=== PATIENT | female | born 1975 | race Hispanic/Latino ===

== ENCOUNTER 2017-02-18 14:20 | Inpatient (IN) | payer OTHER ==
[2017-02-18] VITALS (14 sets, daily range): BP systolic 108–133; BP diastolic 57–72
[~2017-02-18] VITALS: Ht 144.8 cm; Wt 61.7 kg
--- NOTE | 2017-02-18 14:00 | NUR ---
Received patient from er to room 253. Patient states that she noted contractions at 17:30 pm this evening and then noted watery discharge with blood. Patient stated that 3 hours ago she noted to have a thick mucous discharge also. heart rate of 135. Moderate variability, good accels. no decels noted. Fauzia Leach community health coordinator for interpretation at present time.
--- NOTE | 2017-02-18 14:00 | NUR ---
Nickie Hamm RN for sheeter operator.
[2017-02-18] MEDS ORDERED: PRENATAL1 TA1 (14:26)
--- NOTE | 2017-02-18 14:32 | NUR ---
heart rate of 135. Moderate variability. good accels. No decels. Contractions every 5 minutes lasting 30 to 60 seconds in duration.
[2017-02-18 14:36] LABS: BARBITURATES NEGATIVE (NEGATIVE); COCAINE NEGATIVE (NEGATIVE); METHADONE NEGATIVE (NEGATIVE); OXCYCODONE NEGATIVE (NEGATIVE); TETRAHYDROCANNABIONOL NEGATIVE (NEGATIVE); TRICYLIC ANTIDEPRESSANTS NEGATIVE (NEGATIVE)
[2017-02-18 14:38] LABS: URINE BILIRUBIN - DIPSTICK NEGATIVE (NEGATIVE); URINE BLOOD DIPSTICK NEGATIVE (NEGATIVE); URINE CLARITY CLEAR; URINE COLOR YELLOW; URINE GLUCOSE - DIPSTICK NEGATIVE (NEGATIVE); URINE KETONE 15 mg/dL (NEGATIVE); URINE LEUK ESTERASE NEGATIVE (NEGATIVE); URINE NITRITE - DIPSTICK NEGATIVE (Negative); URINE PH 6.5 (4.5-8.0); URINE PROTEIN - DIPSTICK NEGATIVE (NEG-TRACE); URINE SPECIFIC GRAVITY 1.025; URINE UROBILINOGEN - DIPSTICK 0.2 E.U./dL (0.2)
--- NOTE | 2017-02-18 14:40 | NUR ---
ODILON + and mikael collected and sent to lab.
--- NOTE | 2017-02-18 15:00 | NUR ---
Dr. meyer called and notified of patient presence on unit. Dr. Meyer to call back.
--- NOTE | 2017-02-18 15:05 | NUR ---
heart rate of 125. Moderate variability. Good accels. No decels. Contractions every 2 to 6 minutes lasting 30 to 60 seconds in duration.
--- NOTE | 2017-02-18 15:07 | NUR ---
Dr. Lew called with order for LR of 500cc bolus and then at 125cc/hr.
--- NOTE | 2017-02-18 15:30 | NUR ---
heart rate of 135. Moderate variability. Good accels. No decels noted. every 2 to 5 minutes lasting 90 to 110 seconds in duration.
--- NOTE | 2017-02-18 16:07 | NUR ---
patient states pain level of 2 on scale of 1 to 10.
--- NOTE | 2017-02-18 16:42 | NUR ---
Patient continues to contract every 2 to 3 minutes. Patient states pain level of 5 on scale of 1 to 10.
--- NOTE | 2017-02-18 16:51 | NUR ---
DR. Lew called and notified of patient's contractions and pain level of 5 on scale of 1 to 10. Procardia 10mg by mouth ordered x1.
--- NOTE | 2017-02-18 17:07 | NUR ---
Procardia 10mg by mouth given as ordered.
--- NOTE | 2017-02-18 17:28 | NUR ---
Dr. Lew notified as patient's contractions palpating as moderate with pain level of 6 on scale of 1 to 10. SVE of 1652 of closed, thick and high. Order to monitor patient if cervical changes and increase in pain noted.
--- NOTE | 2017-02-18 18:00 | NUR ---
Patient continues to contract every 2 to 5 minutes. Pain level of 5 on scale of 1 to 10.
--- NOTE | 2017-02-18 18:30 | NUR ---
Patient's contractions still palpating as moderate. contractions occuring every 2 to 5 minutes lasting 30 to 60 minutes in duration.
--- NOTE | 2017-02-18 18:45 | NUR ---
Report to oncoming shift on patient.
--- NOTE | 2017-02-18 19:00 | NUR ---
RECEIVED REPORT ON PATIENT WHO IS IN ACTIVE LABOR WITH H/O PREVIOUS C/S. PT BEING PREPPED FOR REPEAT C/S PER MD'S ORDER.
[2017-02-18 19:09] LABS: HEMATOCRIT 36.4 % (37.0-47.0); HEMOGLOBIN 12.5 g/dl (12.0-16.0); MEAN CELL VOLUME 93.3 fL CALC (80.0-100.0); MEAN CORPUSCULAR HGB 32.1 pG CALC (26.0-32.0); MEAN CORPUSCULAR HGB CONC 34.3 g/L CALC (32.0-36.0); NEUT# 5.64 thou/uL (2.00-7.15); RED BLOOD COUNT 3.9 mill/uL (4.20-5.60); RED CELL DISTRI WIDTH 14.5 % (11.5-15.5)
[2017-02-18 19:49] LABS: ALBUMIN 3.6 g/dL (3.2-5.0); ALKALINE PHOSPHATASE 202 u/l (38-126); ANION GAP 17 (6-22 (CALC)); BILIRUBIN, TOTAL 0.6 mg/dL (0.0-1.4); BUN 11 mg/dL (7-17); BUN/CREATININE RATIO 27 (12-20 (CALC)); CALCIUM 8.8 mg/dL (8.4-10.2); CARBON DIOXIDE 17 mmol/l (22-30); CHLORIDE 106 mmol/l (95-108); CREATININE 0.4 mg/dL (0.5-1.0); GFR > 60 ML/MIN (>=60 (CALC)); GFR FOR AFR.AMER. > 60 ML/MIN (>=60 (CALC)); GLUCOSE 44 mg/dL (65-105); SGOT/AST 32 u/l (14-36); SGPT/ALT 26 u/l (9-52); SODIUM 136 mmol/l (137-146); TOTAL PROTEIN 6.6 g/dL (6.3-8.2)
--- NOTE | 2017-02-18 22:40 | NUR ---
PT. TRANSPORTED TO UNIT VIA BED AFTER REPEAT DELIVERY.REPORT RECEIVED FROM Victor Hugo ARREOLA RN.PT. ALERT AND MOVING WELL IN BED. IV LR WITH PITOCIN INFUSING. ABDOMINAL DRESSING IN PLACE WITH SMALL AREA OF BLOOD-STAIN NOTED TO THE THE LOWER LEFT SECTION OF THE DRESSING. AREA CIRCLED.FUNDUS WAS FIRM AND LOCHIS MODERSTE. FLOEY WITH BEDSIDE BAG DRAINING CLEAR URINE. SCD CONNECTED.
--- NOTE | 2017-02-18 23:40 | NUR ---
EDIATRITION IN PT'S ROOM TO DISCUSS WITH PATIENT AND HER SPOUSE, THE ABNORMAL FINDINGS IN THEIR .
[2017-02-19] VITALS (8 sets, daily range): BP systolic 11–120; BP diastolic 57–71
--- NOTE | 2017-02-19 07:00 | NUR ---
REPORT RECEIVED, PT RESTS QUIETLY IN BED.
--- NOTE | 2017-02-19 07:30 | NUR ---
DR HAMPTON IN TO SEE PT, PLAN OF CARE DISCUSSED, INTERPRETED BY THIS NURSE.
[2017-02-19 07:37] LABS: HEMOGLOBIN 11.8 g/dl (12.0-16.0); IMMATURE GRANULOCYTES 0.6 % (0.0-1.0); MEAN CELL VOLUME 92.4 fL CALC (80.0-100.0); MEAN CORPUSCULAR HGB 32.1 pG CALC (26.0-32.0); MEAN CORPUSCULAR HGB CONC 34.7 g/L CALC (32.0-36.0); NEUT# 5.82 thou/uL (2.00-7.15); RED BLOOD COUNT 3.68 mill/uL (4.20-5.60)
--- NOTE | 2017-02-19 08:20 | NUR ---
PT RECEIVED CALL FROM [facility] ABOUT INFANT.
--- NOTE | 2017-02-19 08:45 | NUR ---
PT ATE LIQUIDS, VOMITED, OFFERED MED FOR NAUSEA, STATES SHE DOES NOT NEED IT NOW, FEELS OK. MOUTH CARE DONE.
--- NOTE | 2017-02-19 09:12 | NUR ---
SITS IN BED TALKING ON PHONE.
--- NOTE | 2017-02-19 10:08 | NUR ---
PT MEDICATED FOR NAUSEA, JESÚS CARE DONE, PT LIFTED W/O PROBLEM. PT ALLOWED TO REST, WILL GET OOB LATER.
--- NOTE | 2017-02-19 11:47 | NUR ---
PT OOB TO BATHROOM W/O PROBLEM, DAY REMOVED. PT STANDING IN ROOM THEN BACK TO BED. DENIES NAUSEA, DENIES PAIN. PT TALKING WITH FAMILY.
--- NOTE | 2017-02-19 12:35 | NUR ---
PT SITS IN BED TALKING WITH FAMILY.
--- NOTE | 2017-02-19 15:15 | NUR ---
DISCHARGE PLAN REVIEWED, PT ACKNOWLEDGES UNDERSTANDING, PT DENIES PAIN.
--- NOTE | 2017-02-19 16:30 | NUR ---
PT OOB TO VOID, DID JESÚS CARE, BACK TO BED INDEPENDENTLY. TALKS WITH FAMILY.
--- NOTE | 2017-02-19 18:00 | NUR ---
SITS IN BED, TALKING WITH FAMILY.
--- NOTE | 2017-02-19 18:45 | NUR ---
REPORT TO ONCOMING NURSE.
--- NOTE | 2017-02-19 19:00 | NUR ---
Initial shift assessment completed. Pt speaks Bulgarian only, RN speaks some swedish and utilized [employer]acey, pt and her spouse happy because they state they understood everything communicated. Pt not having pain, but agreed to Motrin because coming up to 24 hour erin and Duramorph likely to wear off. Discussed removal of IV around 2100, watching DC videos; pt agreed. RN stated pt may shower after 2100, pt states she wants to wait until tomorrow. low transverse abdominal incision with bulky dressing c/d/i, fundus firm at U, light rubra lochia. IV left hand WNL with LR infusing at 150ml hr. pt moving in bed well on her own, RN instructed to call if assistance needed to get up to bathroom.
--- NOTE | 2017-02-19 20:59 | NUR ---
PT REQUESTED TO TURNED TO RIGHT SIDE. ICE PACKS APPLIED ALL ALONG SPINE FOR BACK PAIN PER PT REQUEST. PT DENIES ANY OTHER NEEDS AT THIS TIME. ENCOURAGED PT TO CALL WITH NEEDS.
--- NOTE | 2017-02-19 22:34 | NUR ---
pt up ambulating in hallway around entire unit x 3 laps.
--- NOTE | 2017-02-20 00:47 | NUR ---
Pt asleep without distress.
--- NOTE | 2017-02-20 02:14 | NUR ---
Pt asleep, awakened and given Motrin 600mg pt states "no" pain, but was rubbing her belly when awoken. pt immediately went back to sleep.
--- NOTE | 2017-02-20 06:45 | NUR ---
Received report from prior shift on patient.
--- NOTE | 2017-02-20 07:00 | NUR ---
In room with patient, assessment done and completed. Patient only slovenian speaking. certificate filled out with no name of infant. Patient states coming later to help her as she cannot write name of infant or difficulty writing.
[2017-02-20 07:30] VITALS: BP 110/67
--- NOTE | 2017-02-20 08:30 | NUR ---
Dr. Lew on unit preparing to discharge patient. Palauan interpretation by Kami from ER registration on unit verified by Biomedical Manager Kelby Conner. Discharge instruction regarding to follow up with md call office for 2 weeks appointment. Care regarding incisiion that steristrips will fall off also. Patient advised to return Wednesday to see certificate Luci Nicholson. Patient verbalized understanding of such.
[2017-02-20] MEDS ORDERED: LORTAB 7.57.5 MG PO (08:57)
[2017-02-20] MEDS ORDERED: IBUPROFEN600 MG PO (08:58)
--- NOTE | 2017-02-20 09:18 | NUR ---
Tdap given in left arm. Patient advised that arm may be sore for few days. Prescription for motrin and lortab given with instructions.
--- NOTE | 2017-02-20 09:34 | NUR ---
Lortab one tablet by mouth given for pain level of 4 on scale of 1 to 10. to incisional area.
--- NOTE | 2017-02-20 10:40 | NUR ---
Significant other on unit with sibling of infant.
--- NOTE | 2017-02-20 11:30 | NUR ---
Pain level of 5 on scale of 1 to 10 to incisional area. Patient medicated with motrin 600mg by mouth.
--- NOTE | 2017-02-20 11:35 | NUR ---
Patient leaves unit in wheelchair with all belongings accompanied by significant other in good condition.
== END 2017-02-20 11:35 | disposition home or self-care (01) | DRG 766 ==
LOC: OB 14:20 → OBOP 14:20 → OB 19:05
PROVIDERS: ADMIT Obstetrics & Gynecology; ATTEND Obstetrics & Gynecology
PROC: 10D00Z1 Extraction of Products of Conception, Low, Open Approach (ICD-10-PCS; principal; 2017-02-18)
DX: O34.211 Maternal care for low transverse scar from previous cesarean delivery (principal); N85.8 Other specified noninflammatory disorders of uterus; O75.82 Onset (spontaneous) of labor after 37 completed weeks of gestation but before 39 completed weeks gestation, with delivery by (planned) cesarean section; O35.1XX0 Maternal care for (suspected) chromosomal abnormality in fetus, not applicable or unspecified; Z3A.38 38 weeks gestation of pregnancy; Z37.0 Single live birth
CPT/HCPCS: J2270

== ENCOUNTER 2017-07-05 18:16 | Emergency (ER) | payer SELFPAY ==
[~2017-07-05] VITALS: Ht 144.8 cm; Wt 50.0 kg
[~2017-07-05 18:16] MED LIST: IBUPROFEN600 MG PO; LORTAB 7.57.5 MG PO; PRENATAL1 TA1
[2017-07-05 19:54] LABS: URINE BILIRUBIN - DIPSTICK NEGATIVE (NEGATIVE); URINE BLOOD DIPSTICK NEGATIVE (NEGATIVE); URINE COLOR YELLOW; URINE GLUCOSE - DIPSTICK NEGATIVE (NEGATIVE); URINE KETONE TRACE mg/dL (NEGATIVE); URINE LEUK ESTERASE NEGATIVE (NEGATIVE); URINE NITRITE - DIPSTICK NEGATIVE (Negative); URINE PROTEIN - DIPSTICK NEGATIVE (NEG-TRACE); URINE UROBILINOGEN - DIPSTICK 0.2 E.U./dL (0.2)
[2017-07-05 19:58] LABS: BARBITURATES NEGATIVE (NEGATIVE); COCAINE NEGATIVE (NEGATIVE); METHADONE NEGATIVE (NEGATIVE); OXCYCODONE NEGATIVE (NEGATIVE); TETRAHYDROCANNABIONOL NEGATIVE (NEGATIVE); TRICYLIC ANTIDEPRESSANTS NEGATIVE (NEGATIVE); URINE CLARITY CLEAR
[2017-07-05 19:59] LABS: HEMATOCRIT 42.5 % (37.0-47.0); HEMOGLOBIN 14.9 g/dl (12.0-16.0); IMMATURE GRANULOCYTES 0.6 % (0.0-1.0); MEAN CELL VOLUME 89.5 fL CALC (80.0-100.0); MEAN CORPUSCULAR HGB 31.4 pG CALC (26.0-32.0); MEAN CORPUSCULAR HGB CONC 35.1 g/L CALC (32.0-36.0); NEUT# 9.47 thou/uL (2.00-7.15); RED BLOOD COUNT 4.75 mill/uL (4.20-5.60); RED CELL DISTRI WIDTH 12.5 % (11.5-15.5)
[2017-07-05 20:19] LABS: ALBUMIN 5.2 g/dL (3.2-5.0); ALKALINE PHOSPHATASE 109 u/l (38-126); AMYLASE 52 u/l (30-110); ANION GAP 21 (6-22 (CALC)); BILIRUBIN, TOTAL 0.5 mg/dL (0.0-1.4); BUN 17 mg/dL (7-17); BUN/CREATININE RATIO 29 (12-20 (CALC)); CALCIUM 10.2 mg/dL (8.4-10.2); CARBON DIOXIDE 20 mmol/l (22-30); CHLORIDE 107 mmol/l (95-108); CREATININE 0.6 mg/dL (0.5-1.0); GFR > 60 ML/MIN (>=60 (CALC)); GFR FOR AFR.AMER. > 60 ML/MIN (>=60 (CALC)); GLUCOSE 123 mg/dL (65-105); LIPASE 43 u/l (23-300); POTASSIUM 3.2 mmol/l (3.5-5.1); SGOT/AST 30 u/l (14-36); SGPT/ALT 28 u/l (9-52); SODIUM 144 mmol/l (137-146); TOTAL PROTEIN 8.8 g/dL (6.3-8.2)
[2017-07-05 20:30] LABS: MYOGLOBIN 35 ng/mL (0 - 62)
[2017-07-06 02:30] VITALS: BP 118/58
== END 2017-07-06 02:33 | disposition home or self-care (01) | DRG 103 ==
LOC: ED 18:16
PROVIDERS: Emergency Medicine
DX: R51 Headache (principal); I10 Essential (primary) hypertension; R11.0 Nausea